=== PATIENT | male | born 1985 | race Caucasian/White ===

== ENCOUNTER 2017-09-02 01:39 | Emergency (ER) | payer SELFPAY ==
[~2017-09-02] VITALS: Ht 185.4 cm; Wt 93.0 kg
[2017-09-02 01:51] VITALS: BP 152/90
--- NOTE | 2017-09-02 02:27 | PHYS DOC ---
Past Medical History Past Medical History: No Pertinent History Past Surgical History: Other Additional Past Surgical Histo: R hand Alcohol Use: Occasionally Drug Use: Marijuana Social History Narrative: occasional marijuana use Adult General Chief Complaint Chief Complaint: SORE THROAT HPI HPI Patient is a 31 year old male who presents with complaint of sore throat. Patient states his symptoms started yesterday. Patient states they have progressively gotten worse. Patient has had mild cough today and states that he has coughed up small amounts of blood. Patient states that he had similar symptoms in the past and states that this was associated with strep throat. The patient states that he is concerned he has strep throat again. Patient denies any fevers. Patient denies any shortness of breath, nausea, or vomiting. Review of Systems Review of Systems Constitutional: Chills[] Eyes: Denies change in visual acuity, redness, or eye pain [] HENT: Sore throat[] Respiratory: Occasional cough[] Cardiovascular: Denies chest pain or edema[] GI: Denies abdominal pain, nausea, vomiting, bloody stools or diarrhea [] : Denies dysuria or hematuria [] Musculoskeletal: Denies back pain or joint pain [] Integument: Denies rash or skin lesions [] Neurologic: Denies headache, focal weakness or sensory changes [] All other systems were reviewed and found to be within normal limits, except as documented in this note. Current Medications Current Medications Current Medications Medications (Trade) Dose Ordered Sig/[facility] Start Time Stop Time Status Last Admin Dose Admin Dexamethasone Sodium Phosphate (Decadron) 12 mg 1X ONCE 09/02/17 02:30 09/02/17 02:31 DC Ondansetron HCl (Zofran) 4 mg 1X ONCE 09/02/17 02:30 09/02/17 02:31 Cancel Sodium Chloride 1,000 ml @ 1,000 mls/hr Q1H 09/02/17 02:30 09/02/17 03:29 Cancel Allergies Allergies Allergies Coded Allergies Type Severity Reaction Last Updated Verified Penicillins Allergy Severe 09/02/17 Yes Sulfa (Sulfonamide Antibiotics) Allergy Unknown 09/02/17 Yes Physical Exam Physical Exam Constitutional: Alert, afebrile, appears ill. [] HENT: Normocephalic, atraumatic, bilateral external ears normal, or pharyngeal erythema present, petechial hemorrhages on soft palate present, no oral exudates , nose normal. [] Eyes: PERRLA, EOMI, conjunctiva normal, no discharge. [] Neck: Normal range of motion, tender anterior cervical lymphadenopathy present, supple, no stridor. [] Cardiovascular:Heart rate regular rhythm, no murmur [] Lungs & Thorax: Bilateral breath sounds clear to auscultation [] Abdomen: Bowel sounds normal, soft, no tenderness, no masses, no pulsatile masses. [] Skin: Warm, dry, no erythema, no rash. [] Back: No tenderness, no CVA tenderness. [] Extremities: No tenderness, no cyanosis, no clubbing, ROM intact, no edema. [] Neurologic: Alert and oriented X 3, normal motor function, normal sensory function, no focal deficits noted. [] Current Patient Data Vital Signs Vital Signs Date Time Temp Pulse Resp B/P (MAP) Pulse Ox O2 Delivery O2 Flow Rate FiO2 09/02/17 01:51 98.3 75 18 152/90 (110) 97 Room Air 98.3 EKG EKG Not performed[] Radiology/Procedures Radiology/Procedures Not performed[] Course & Med Decision Making Course & Med Decision Making Pertinent Labs and Imaging studies reviewed. (See chart for details) Patient's rapid strep test was negative, however the patient's clinical exam shows several characteristics of acute strep pharyngitis. This reason, the patient will be started on azithromycin for treatment. Advise follow-up with primary doctor in 2-3 days for reevaluation. Patient was given an IM dose of Decadron for treatment of pharyngeal inflammation. Advised return emergency department for any worsening symptoms. Patient was understanding and in agreement with treatment plan. Dragon Disclaimer Dragon Disclaimer This electronic medical record was generated, in whole or in part, using a voice recognition dictation system. Departure Departure Impression: Primary Impression: Acute pharyngitis Referrals: NO PCP (PCP) Patient Instructions: Viral and Bacterial Pharyngitis Additional Instructions: Follow-up to primary doctor in 2-3 days for reevaluation. Return to the emergency department for any worsening symptoms. Scripts Azithromycin (AZITHROMYCIN TABLET) 250 Mg Tablet 1 PKG PO UD, #6 TAB Prov: ERICH JOSHI MD 09/02/17 Problem Qualifiers Primary Impression: Acute pharyngitis Pharyngitis/tonsillitis etiology: unspecified etiology Qualified Codes: J02.9 - Acute pharyngitis, unspecified ERICH JOSHI MD Sep 02, 2017 02:27
[2017-09-02] MEDS ORDERED: IV NORMAL SALINE 1000ML BAG 1,000 ML IV SCH (02:30)
[2017-09-02] MEDS ORDERED: ONDANSETRON PF 4 MG/2 ML VIAL. IV ONE (02:30)
[2017-09-02] MEDS ORDERED: DEXAMETHASONE SOD PHOS 20 MG/5 ML VIAL. IM ONE (02:30)
[2017-09-02] MEDS ORDERED: AZIT250T6 PO (02:39)
[2017-09-02 10:52] LABS: NEGATIVE OBC STREP NEG; POSITIVE OBC STREP POS
== END 2017-09-02 03:00 | disposition home or self-care (01) ==
LOC: ER 01:39
DX: J02.9 Acute pharyngitis, unspecified (principal); F12.10 Cannabis abuse, uncomplicated; Z88.0 Allergy status to penicillin; Z88.2 Allergy status to sulfonamides
CPT/HCPCS: 87070; 87880; 96372; 99283; J1100

== ENCOUNTER 2020-01-14 10:36 | Emergency (ER) | payer SELFPAY ==
[~2020-01-14] VITALS: Ht 182.9 cm; Wt 100.0 kg
[~2020-01-14 10:36] MED LIST: AZIT250T6 PO
[2020-01-14 10:48] VITALS: BP 142/83
[2020-01-14] MEDS ORDERED: DEXAMETHASONE SOD PHOS 20 MG/5 ML VIAL. IM ONE (11:15)
[2020-01-14] MEDS ORDERED: PRED50TA PO (11:21)
[2020-01-14] MEDS ORDERED: PRED20TA PO ×2 (11:25→11:27)
--- NOTE | 2020-01-14 11:27 | PHYS DOC ---
Past Medical History Past Medical History: No Pertinent History Past Surgical History: Other Additional Past Surgical Histo: R hand Smoking Status: Current Some Day Smoker Alcohol Use: Occasionally Drug Use: Marijuana General Adult EDM: Chief Complaint: KNEE INJURY HPI: HPI: Patient is a 34 year old male who presents to the emergency department with complaints of left knee redness, swelling, and pain for the last 4 days. Patient states he has a history of bursitis and feels like it has flared up again. Patient denies any injury or fall. He states he has been applying ice and heat to the area with little relief in his symptoms. Patient denies taking any Tylenol or ibuprofen for relief of his pain. He currently rates his pain a 6 out of 10 on the pain scale, he denies any alleviating factors. The pain is worse with weightbearing and movement. Review of Systems: Review of Systems: Constitutional: Denies fever or chills. [] Respiratory: Denies cough or shortness of breath. [] Cardiovascular: Denies chest pain or edema. [] Musculoskeletal: See HPI Integument: Reports redness to left anterior knee Neurologic: Denies focal weakness or sensory changes. [] Psychiatric: Denies depression or anxiety. [] Heart Score: Risk Factors: Risk Factors: DM, Current or recent (<one month) smoker, HTN, HLP, family history of CAD, obesity. Risk Scores: Score 0 - 3: 2.5% MACE over next 6 weeks - Discharge Home Score 4 - 6: 20.3% MACE over next 6 weeks - Admit for Clinical Observation Score 7 - 10: 72.7% MACE over next 6 weeks - Early Invasive Strategies Current Medications: Current Medications Medications (Trade) Dose Ordered Sig/[facility] Start Time Stop Time Status Last Admin Dose Admin Dexamethasone Sodium Phosphate (Decadron) 10 mg 1X ONCE 01/14/20 11:15 01/14/20 11:16 Allergies: Allergies: Allergies Coded Allergies Type Severity Reaction Last Updated Verified Penicillins Allergy Severe 09/02/17 Yes Sulfa (Sulfonamide Antibiotics) Allergy Unknown 09/02/17 Yes Physical Exam: PE: Constitutional: Well developed, well nourished, no acute distress, non-toxic appearance. [] HENT: Normocephalic, atraumatic, bilateral external ears normal, nose normal. [] Eyes: PERRLA, EOMI, conjunctiva normal, no discharge. [] Neck: Normal range of motion, no stridor. [] Cardiovascular:Heart rate regular rhythm Lungs & Thorax: Respirations even and unlabored, no retractions, no respiratory distress Skin: Warm, dry; erythema noted to anterior left knee, no visible abscess Extremities: Left anterior knee tenderness to palpation, no crepitus, no deformity, PMS intact, 1+ edema consistent with bursitis, no cyanosis Neurologic: Alert and oriented X 3, no focal deficits noted. [] Psychologic: Affect normal, judgement normal, mood normal. [] Current Patient Data: Vital Signs: Vital Signs Date Time Temp Pulse Resp B/P (MAP) Pulse Ox O2 Delivery O2 Flow Rate FiO2 01/14/20 10:48 97.7 76 16 142/83 (102) 98 Room Air 97.7 EKG: EKG: [] Radiology/Procedures: Radiology/Procedures: [] Course & Med Decision Making: Course & Med Decision Making Pertinent Labs and Imaging studies reviewed. (See chart for details) Patient is a 34-year-old male who presents to the emergency department with complaints of left knee pain and swelling for the last 4 days without any injury. Patient reported a history of bursitis, physical exam is consistent with bursitis. Patient was given 10 mg of Decadron IM in the emergency department. Prescription written for prednisone 50 mg 1 p.o. daily x5 days starting tomorrow was prescribed. Patient was provided with Dr. Gooden's information for follow-up. Patient instructed to return to the emergency room if symptoms worsen, or he develops a fever. Patient verbalized an understanding of home care, medications, follow-up, and return to ED instructions and was in agreement with the plan of care. [] Dragon Disclaimer: Dragon Disclaimer: This electronic medical record was generated, in whole or in part, using a voice recognition dictation system. Departure Departure Impression: Primary Impression: Bursitis of left knee Qualified Codes: M70.52 - Other bursitis of knee, left knee Disposition: HOME, SELF-CARE Condition: STABLE Referrals: NO PCP (PCP) Patient Instructions: Bursitis, [id number] Additional Instructions: Fill prescription(s) and use as directed. [id number] NSAIDS as discussed for pain relief. Recommend application of ice, elevation, and rest of affected extremity. Wear the [place] wrap that was placed until follow up appointment. Follow up with Dr. Gooden for further evaluation and treatment. Return to the ER if your symptoms worsen or you develop a fever. Scripts Prednisone (PREDNISONE) 20 Mg Tablet 1 TAB PO UD for 12 Days, #9 TAB take 1 tab PO daily x6 days then take 0.5 tab daily x 6 days Prov: RICHARD GRECO APRN 01/14/20 RICHARD GRECO APRN Jan 14, 2020 11:27
== END 2020-01-14 11:45 | disposition home or self-care (01) ==
LOC: ER 10:36
DX: M70.52 Other bursitis of knee, left knee (principal); R60.0 Localized edema; F17.200 Nicotine dependence, unspecified, uncomplicated; F12.90 Cannabis use, unspecified, uncomplicated; Z98.890 Other specified postprocedural states; Z88.0 Allergy status to penicillin; Z88.2 Allergy status to sulfonamides
CPT/HCPCS: 96372; 99283; J1100